=== PATIENT | male | born 1935 | race African-American/Black ===

== ENCOUNTER 2023-12-03 13:20 | Outpatient (RCR) | payer MEDICARE, BC, SELFPAY | END 2023-12-03 23:59 | disposition home or self-care (01) | LOC: CRHB 13:20 | PROVIDERS: Internal Medicine Cardiovascular Disease; ATTENDING PHYSICIAN Internal Medicine Cardiovascular Disease | DX: I50.22 Chronic systolic (congestive) heart failure (principal) | CPT/HCPCS: G0422 ==

== ENCOUNTER 2024-01-03 08:15 | Outpatient (RCR) | payer MEDICARE, BC, SELFPAY | END 2024-01-03 23:59 | disposition home or self-care (01) | LOC: CRHB 08:15 | PROVIDERS: ATTENDING PHYSICIAN Internal Medicine Cardiovascular Disease | DX: I50.22 Chronic systolic (congestive) heart failure (principal) | CPT/HCPCS: G0422; G0423 ==

== ENCOUNTER 2024-02-03 08:24 | Outpatient (RCR) | payer MEDICARE, BC, SELFPAY | END 2024-02-03 23:59 | disposition home or self-care (01) | LOC: CRHB 08:24 | PROVIDERS: ATTENDING PHYSICIAN Internal Medicine Cardiovascular Disease | DX: I50.22 Chronic systolic (congestive) heart failure (principal) | CPT/HCPCS: G0422; G0423 ==

== ENCOUNTER 2024-03-06 11:30 | Outpatient (RCR) | payer MEDICARE, BC, SELFPAY | END 2024-03-06 23:59 | disposition home or self-care (01) | LOC: CRHB 11:30 | PROVIDERS: ATTENDING PHYSICIAN Internal Medicine Cardiovascular Disease; FAMILY PHYSICIAN Nurse Practitioner Family | DX: I50.22 Chronic systolic (congestive) heart failure (principal); J44.9 Chronic obstructive pulmonary disease, unspecified | CPT/HCPCS: G0422; G0423 ==

== ENCOUNTER 2024-03-11 08:21 | Outpatient (RCR) | payer MEDICARE, BC, SELFPAY | END 2024-03-11 23:59 | disposition home or self-care (01) | LOC: CRHB 08:21 | PROVIDERS: ATTENDING PHYSICIAN Internal Medicine Cardiovascular Disease | DX: I50.22 Chronic systolic (congestive) heart failure (principal) | CPT/HCPCS: G0422; G0423 ==

== ENCOUNTER → 2024-10-21 13:30 | Outpatient (REF) | payer MEDICARE, BC, SELFPAY | LOC: DHSLP 13:30 | PROVIDERS: ATTENDING PHYSICIAN Internal Medicine Critical Care Medicine; FAMILY PHYSICIAN Nurse Practitioner Family | DX: G47.33 Obstructive sleep apnea (adult) (pediatric) (principal) | CPT/HCPCS: 95800 ==